=== PATIENT | female | born 1955 | race Caucasian/White ===

== ENCOUNTER 2020-03-10 22:16 | Emergency (ER) | payer MEDICAID ==
[~2020-03-10] VITALS: Ht 157.5 cm; Wt 45.0 kg
[2020-03-10] MEDS ORDERED: IBUPROFEN 600MG TABLET PO ONE (22:30)
[2020-03-11 00:27] VITALS: BP 128/74
== END 2020-03-11 00:31 | disposition home or self-care (01) ==
LOC: ER 22:16
DX: S40.012A Contusion of left shoulder, initial encounter (principal); S09.8XXA Other specified injuries of head, initial encounter; M25.552 Pain in left hip; W01.0XXA Fall on same level from slipping, tripping and stumbling without subsequent striking against object, initial encounter; Y93.89 Activity, other specified; Y92.89 Other specified places as the place of occurrence of the external cause
CPT/HCPCS: 73030; 73502; 99284